=== PATIENT | male | born 1960 | race Caucasian/White ===

== ENCOUNTER 2020-06-05 03:51 | Emergency (ER) | payer OTHER ==
[~2020-06-05] VITALS: Ht 182.9 cm; Wt 75.5 kg
[~2020-06-05 03:51] MED LIST: ACET-784 PO; ALPR-411 PO; ALPR0.5T8 PO; BUSP15 PO; DIVA-111 PO; LEVE500T53 PO; LISI-660 PO; METO25 PO; NITR0.4T52 PO; PANT40TA PO; QUET50TA15 PO; RANO500T3 PO; TIZA2CAP PO; [UNRECOGNIZED DRUG - OTHER]
[2020-06-05] MEDS ORDERED: ACETAMINOPHEN 325 MG TABLET PO ONE (06:30)
[2020-06-05 07:42] VITALS: BP 106/72
== END 2020-06-05 09:00 | disposition home or self-care (01) ==
LOC: EMS 03:51
DX: S09.90XA Unspecified injury of head, initial encounter (principal); I10 Essential (primary) hypertension; E78.00 Pure hypercholesterolemia, unspecified; I25.2 Old myocardial infarction; I25.10 Atherosclerotic heart disease of native coronary artery without angina pectoris; F31.9 Bipolar disorder, unspecified; Z88.0 Allergy status to penicillin; Z88.8 Allergy status to other drugs, medicaments and biological substances; Z88.5 Allergy status to narcotic agent; Z91.011 Allergy to milk products; Z79.899 Other long term (current) drug therapy; W01.10XA Fall on same level from slipping, tripping and stumbling with subsequent striking against unspecified object, initial encounter; Y93.89 Activity, other specified; Y92.89 Other specified places as the place of occurrence of the external cause; Y99.8 Other external cause status
CPT/HCPCS: 70450